=== PATIENT | male | born 1940 | race Caucasian/White ===

== ENCOUNTER 2019-02-13 07:30 | Inpatient (IN) ==
[2019-02-06 17:50] LABS: Appearance,Urine CLEAR; Bacteria,Urine 0 /hpf (0); Bilirubin,Urine NEG (NEG); Color,Urine YELLOW; Glucose,Urine (UA) 50 mg/dL (NEG); Ketones,Urine NEG (NEG); Leukocyte Esterase,Urine NEG /uL (NEG); Mucus,Urine FEW /hpf (0); Nitrate,Urine NEG (NEG); Protein,Urine >=500 mg/dL (NEG); Specific Gravity,Urine 1.018 (1.000-1.035); Urine Blood NEG mg/dL (<0.03); Urine RBC 0 /hpf (0-1); Urine Squamous Epithelial Cell 2 /hpf (0-4); Urine WBC 1 /hpf (0-4); Urobilinogen,Urine NEG (NEG)
[2019-02-06 18:30] LABS: Basophils # (Auto) 0.1 K/mcL (0.0-0.3); Basophils % (Auto) 0.6 % (0.0-2.0); Eosinophils # (Auto) 0.6 K/mcL (0.0-0.7); Eosinophils % (Auto) 6.5 % (0.0-7.0); Granulocytes % (Auto) 56.1 % (38.0-78.0); Hematocrit 39.6 % (41.0-55.0); Hemoglobin 12.7 g/dL (13.5-16.5); Lymphocytes # (Auto) 2.6 K/mcL (1.5-4.8); Lymphocytes % (Auto) 29.3 % (15.5-49.0); Mean Cell Volume 79.1 fL (80.0-100.0); Mean Platelet Volume 8.2 fL (7.4-10.4); Monocytes # (Auto) 0.7 K/mcL (0.1-0.9); Monocytes % (Auto) 7.5 % (1.0-12.0); Platelet Count 263 K/mcL (140-440); RBC 5.01 M/mcL (4.50-5.90); WBC 8.8 K/mcL (4.5-11.0)
[2019-02-06 18:39] LABS: Blood Urea Nitrogen 23 mg/dl (8-23); Calcium 9.7 mg/dl (8.6-10.4); Carbon Dioxide 25 mmol/L (22-30); Chloride 100 mmol/L (96-108); Glomerular Filtration Rate 82; Glucose 200 mg/dL (70-105)
[2019-02-06 18:53] LABS: Estimated Average Glucose(eAG) 197 mg/dL; Hemoglobin A1C 8.5 % HGB (4.0-6.0)
[~2019-02-13 07:30] MED LIST: 0.9 % SODIUM CHLORIDE 9 ML, KETOROLAC 30 MG, ROPIVACAINE HCL/PF 49.5 ML, EPINEPHrine 0.... IJ SCH; ACETAMINOPHEN 500 MG TABLET PO SCH; PREGABALIN 75 MG CAPSULE PO SCH; ceFAZolin 3 GM in DEXTROSE 5% IN WATER 50 ML IV SCH; oxyCODONE 10 MG TAB.ER.12H PO SCH
[2019-02-13] MEDS ORDERED: SCOPOLAMINE 1 PATCH PATCH TOPICAL PRN (08:00)
[2019-02-13] MEDS ORDERED: IPRATROPIUM/ALBUTEROL 3 ML AMPUL.NEB NEB PRN ×2 (08:00→13:32)
[2019-02-13] MEDS: CELECOXIB 200 MG CAPSULE PO SCH (10:45)
[2019-02-13] MEDS ORDERED: GENTAMICIN SULFATE 800 MG/20 ML VIAL IR ONE (10:51)
[2019-02-13] MEDS ORDERED: GLYCOPYRROLATE 0.2 MG/ML VIAL IV ONE (11:55)
[2019-02-13] MEDS ORDERED: ONDANSETRON 4 MG/2 ML VIAL IV ONE (11:55)
[2019-02-13] MEDS ORDERED: DEXAMETHASONE 10 MG/ML VIAL IV ONE (11:55)
[2019-02-13] MEDS ORDERED: KETAMINE 100 MG/ML ML IV ONE (11:55)
[2019-02-13] MEDS ORDERED: fentaNYL 100 MCG/2 ML VIAL IV ONE (11:55)
[2019-02-13] MEDS ORDERED: PROPOFOL 200 MG/20 ML VIAL IV ONE (11:55)
[2019-02-13] MEDS ORDERED: MIDAZOLAM 2 MG/2 ML VIAL IV ONE (11:55)
[2019-02-13] MEDS ORDERED: TRANEXAMIC ACID 1,000 MG/10 ML VIAL IV ONE ×3 (11:55→14:14)
[2019-02-13] MEDS ORDERED: ROPIVACAINE HCL/PF 30 ML VIAL IJ ONE (11:55)
[2019-02-13] MEDS ORDERED: LIDOCAINE HCL/PF 100 MG/5 ML SYRINGE IV ONE (11:55)
[2019-02-13] MEDS ORDERED: METHOCARBAMOL 1,000 MG/10 ML VIAL IV PRN (13:32)
[2019-02-13] MEDS ORDERED: ONDANSETRON 4 MG/2 ML VIAL IV PRN ×2 (13:32→13:52)
[2019-02-13] MEDS ORDERED: MEPERIDINE 25 MG/ML SYRINGE IV PRN (13:32)
[2019-02-13] MEDS ORDERED: LACTATED RINGERS 1,000 ML IV SCH (13:45)
[2019-02-13] MEDS ORDERED: BISACODYL 10 MG SUPP.RECT PR PRN (13:52)
[2019-02-13] MEDS ORDERED: POLYETHYLENE GLYCOL 3350 17 GM PACKET PO PRN (13:52)
[2019-02-13] MEDS ORDERED: MAGNESIUM HYDROXIDE 30 ML ORAL.SUSP PO PRN (13:52)
[2019-02-13] MEDS ORDERED: BENZOCAINE/MENTHOL 1 LOZENGE PO PRN (13:52)
[2019-02-13] MEDS ORDERED: FLEETS ADULT ENEMA PR PRN (13:52)
--- NOTE | 2019-02-13 14:11 | XRay Report ---
CLINICAL INFORMATION: post op COMPARISON: None. FINDINGS: Total knee prostheses is anatomically aligned. No osseous abnormality. Periarticular gas soft tissues and seen at the expected IMPRESSION: Negative Interpreted and Authenticated by: Vignesh Hightower 02/13/19
[2019-02-13] MEDS ORDERED: TRANEXAMIC ACID 1,000 MG/10 ML VIAL IV SCH (14:30)
[2019-02-13] MEDS: 0.9 % SODIUM CHLORIDE 10 ML SYRINGE IV SCH ×2 (15:43→21:36)
[2019-02-13] MEDS: 0.45 % SODIUM CHLORIDE 1,000 ML IV SCH (17:24)
[2019-02-13] MEDS: metFORMIN 500 MG TABLET PO SCH (17:24)
--- NOTE | 2019-02-13 18:47 | Brief Operative Note ---
Date of procedure: 02/13/19 Pre-op diagnosis: Right knee djd Post-op diagnosis: same Procedure: Right knee tka Grafts/Implants: Yes Anesthesia: DUSTIN Surgeon: eJrry Fowler Combined Rail Operator: Harshil Bar Estimated blood loss (cc): 50 Tourniquet Time (Minutes): 45 Specimens Removed/Pathology: none sent Condition: stable Disposition: PACU
[2019-02-13] MEDS: ceFAZolin 1 GM VIAL IV SCH (18:49)
[2019-02-13] MEDS ORDERED: SENNOSIDES 1 TABLET PO SCH (21:00)
[2019-02-13] MEDS ORDERED: amLODIPine 5 MG TABLET PO SCH (21:00)
[2019-02-13] MEDS ORDERED: INSULIN GLARGINE, HUMAN 1 UNIT/0.01 ML SQ SCH (21:00)
[2019-02-13] MEDS ORDERED: SIMVASTATIN 20 MG TABLET PO SCH (21:00)
[2019-02-13] MEDS: DOCUSATE SODIUM 100 MG CAPSULE PO SCH (21:33)
[2019-02-13] MEDS: ALLOPURINOL 300 MG TABLET PO SCH (21:34)
[2019-02-13] MEDS: HYDROcodone/APAP 10/325MG TABLET PO PRN (21:35)
[2019-02-14] MEDS: ceFAZolin 1 GM VIAL IV SCH (04:19)
[2019-02-14] MEDS: 0.9 % SODIUM CHLORIDE 10 ML SYRINGE IV SCH (04:19)
[2019-02-14] MEDS: HYDROcodone/APAP 10/325MG TABLET PO PRN ×2 (06:19→09:55)
[2019-02-14 06:59] LABS: Hematocrit 35.4 % (41.0-55.0); Hemoglobin 11.4 g/dL (13.5-16.5)
--- NOTE | 2019-02-14 07:24 | Orthopedic Progress Note ---
Subjective Patient information: Note initiated : 02/14/19 at 7:23 am Service Date, if different from initiated Date: [] Patient: Gisele Steiner 78 y/o M admitted on 02/13/19 for Right Total Knee Arthroplasty. Chief Complaint: [Pt is stable this morning on post operative day 1 without any significant concerns or complaints. Patients vital signs have remained stable. Patients dressing is dry and is grossly intact from a neurovascular and motor standpoint. Patients 10 point ROS is otherwise negative. ] Objective Vital signs: Vital Signs Temp Pulse Resp BP Pulse Ox 02/14/19 03:02 97.3 F 102 H 16 116/79 94 02/13/19 23:19 97.3 F 95 H 16 120/78 93 02/13/19 19:15 98.0 F 99 H 16 137/92 94 02/13/19 14:20 97.1 F 104 H 15 118/80 94 02/13/19 14:05 97.3 F 105 H 17 97/69 90 02/13/19 13:55 97.6 F 91 H 11 L 124/68 95 02/13/19 13:50 88 10 L 97/70 92 02/13/19 13:45 95 H 9 L 98/64 92 02/13/19 13:40 95 H 9 L 97/58 92 02/13/19 13:35 97.1 F 92 H 10 L 110/63 95 02/13/19 08:15 97.6 F 100 H 18 130/90 95 Intake and Output 02/13/19 02/14/19 02/14/19 21:59 05:59 13:59 Intake Total 940 375 Output Total 225 Balance 940 375 -225 Intake: Oral 840 375 IV - Manual Only 100 Output: Void Amount 225 Other: Meal Dinner Percent of Meal Consumed 100% Feeding Ability Independent Urine Appearance Clear Urine Color Bright Yellow Urine Odor Normal Weight 288 lb 8 oz Intake & Output: Intake & Output 02/13/19 02/14/19 02/14/19 21:59 05:59 13:59 Intake Total 940 375 Output Total 225 Balance 940 375 -225 Weight 288 lb 8 oz Intake: Oral 840 375 IV - Manual Only 100 Output: Void Amount 225 Other: Meal Dinner Percent of Meal Consumed 100% Feeding Ability Independent Urine Appearance Clear Urine Color Bright Yellow Urine Odor Normal Incision: Yes healing Incision clean and dry: Yes Dressing: Yes clean Weight bearing status: full Neurological exam IM: Yes motor sensory intact, Yes neurovascular intact Extremities exam IM: Yes Foot pink and warm, Yes neurovascular intact - Labs CBC & BMP: 02/14/19 05:05 02/06/19 16:55 Labs: Orthopedic Labs 02/14/19 05:05 PT Pending INR Pending 02/14/19 02/06/19 05:05 16:55 Hgb 11.4 L 12.7 L Hct 35.4 L 39.6 L Assessment and Plan (1) Hx of total knee arthroplasty The patient has been educated regarding dressing care, Physical Therapy recommendations, home exercises, restrictions, and follow up appointments. The patient has had all necessary DME prescribed. The patient has remained relatively stable during their hospital course. Leave Dermabond patch intact until followup Status: Acute
--- NOTE | 2019-02-14 07:26 | Discharge Summary ---
Ortho Discharge - TKA - Patient Instructions Diet: Regular Diet Activity: activity as tolerated, weight bearing as tolerated Total Knee Protocol: For Total Knee: Start ROM NUPUR with stationary bike or rocking chair. Work on gaining full extension of knee. Posterior dislocation precautions provided. Hip abductor strengthening and gait training instructions provided. Apply Cryocuff as instructed. Dressing Care: May shower in 2 days - Problem Maintenance (1) Hx of total knee arthroplasty Status: Acute - Follow Up Plan Follow Up Appointments: Harshil Bar PA-C [Physician Charging Board Operator] - 03/02/19 10:00 am Disposition: Home, Self-Care Prognosis: Good Rehab Potential: Good I certify that the patient requires SNF services: No Overall status at discharge: patient is progressing back to baseline - Orders For Discharge Prescriptions: Docusate Sodium [Colace] 100 mg PO BID #60 capsule HYDROcodone/APAP 10/325MG [[place] 10-325Mg] 1 - 2 tab PO Q4HP PRN #75 tablet PRN Reason: Pain Level 3-6
--- NOTE | 2019-02-14 08:11 | Operative Note ---
DATE OF OPERATION: 02/13/2019 PREOPERATIVE DIAGNOSIS: Right knee degenerative arthritis, severe. POSTOPERATIVE DIAGNOSIS: Right knee degenerative arthritis, severe. INDICATIONS: The patient has failed all conservative measures, which included anti-inflammatories, Tylenol and prior injections. The patient rates pain at 8/10 and able to ambulate less than half mile without stopping and awakens at night with pain. The patient also has x-rays showing [id number] arthritis. PROCEDURE: Right total knee arthroplasty using ODC components. SURGEON: Jerry Fowler MD [place] SUPERVISOR: Harshil Bar PA-C. This provider's expertise and technical skill were required throughout the case. The PA assisted with preoperative coordination, intraoperative retraction, wound closure, dressing and splint application, as well as postoperative documentation and care coordination. ANESTHESIA: General LMA anesthesia. COMPLICATIONS: None. DESCRIPTION OF PROCEDURE: The patient was brought to the operating room and put to sleep with general LMA anesthesia. Once asleep, the patient had the right knee sterilely prepped and draped in the usual sterile fashion. The leg was exsanguinated and inflated to 250 pounds of pressure and a midline incision was made. Ioban was placed over the skin. Preop antibiotics and tranexamic acid had been given and we exposed the joint with a mid vastus approach showing severe arthritis. The spurs were removed. We placed the guide intramedullary and made our distal femoral cut with 5 degrees of valgus and 3 degrees of external rotation. With this calculated, we then made our anterior and posterior and chamfer cuts. The bony fragments were removed with spurs. We then placed an intramedullary guide in the tibia and made our tibial cut at 8 mm below the least involved area and removed the remnants of the meniscus. These bony fragments were removed. We tapped into place the tibial baseplate and the femur; femur size 6, size 5 tibial baseplate. We then tensioned the ligaments accordingly and to gain full range of motion and stability throughout the arc of motion. We irrigated thoroughly and then prepared the patella. Patella measured 25 mm in total thickness. This was cut to 15 mm and we then placed patellar button into place to cover the bony surface. This seemed to fit very nicely. We irrigated thoroughly and then cemented into place the components. Excess cement was removed. We then placed the knee at 45 degrees and closed the midvastus approach with #1 Stratafix x2 sutures. We closed the skin with 2-0 Vicryl and adhesive closure. Sterile bandage applied. Tourniquet deflated at approximately 45 minutes. RBH:ariel Job ID: [id number] Doc ID: [id number] Jerry Fowler MD
[2019-02-14 08:29] LABS: INR 1.1 (0.9-1.1); Prothrombin Time 14.2 sec (11.9-14.5)
[2019-02-14] MEDS ORDERED: LOSARTAN 50 MG TABLET PO SCH (09:00)
[2019-02-14] MEDS ORDERED: ASPIRIN 325 MG ENTERIC COATED TABLET PO SCH (09:00)
[2019-02-14] MEDS: 0.45 % SODIUM CHLORIDE 1,000 ML IV SCH (09:13)
[2019-02-14] MEDS: DOCUSATE SODIUM 100 MG CAPSULE PO SCH (10:00)
[2019-02-14] MEDS ORDERED: PNEUMOCOCCAL 23-VAL P-SAC VAC 0.5 ML SYRINGE IM ONE (10:00)
[2019-02-14] MEDS ORDERED: FLU VACC QS2019-20(6MOS UP)/PF 60 MCG/0.5 ML SYRINGE IM ONE (10:00)
[2019-02-14] MEDS: metFORMIN 500 MG TABLET PO SCH (10:01)
[2019-02-14] MEDS: ALLOPURINOL 300 MG TABLET PO SCH (10:02)
== END 2019-02-14 13:30 | disposition home or self-care (01) | DRG 470 ==
LOC: MEDSUR 08:15
PROVIDERS: ADMIT Orthopaedic Surgery; ATTEND Orthopaedic Surgery

== ENCOUNTER 2021-11-22 17:56 | Inpatient (IN) ==
[2021-11-22] MEDS ORDERED: IOPAMIDOL 100 ML BOTTLE IV ONE (17:57)
[2021-11-22] MEDS ORDERED: 0.9 % SODIUM CHLORIDE 1,000 ML IV ONE (18:01)
[2021-11-22] MEDS ORDERED: 0.9 % SODIUM CHLORIDE 2,330 ML IV ONE (18:10)
--- NOTE | 2021-11-22 18:16 | Emergency Department Note ---
Neuro HPI General Chief Complaint: Stroke Symptoms Stated Complaint: altered mental status Time Seen by Provider: 11/22/21 18:01 Source: family Mode of arrival: wheelchair Limitations: altered mental status History of Present Illness HPI Narrative: Narrative: Daughter presents ED with patient with complaints of altered mental status since 3:00 this afternoon. Daughter states that patient has been having trouble expressing himself and she is noted some slurred speech. She stated that he has become extremely weak and unable to walk. At baseline he speaks clearly and is able to ambulate without difficulty. She states this is happened before and he was dehydrated. She states his symptoms were not getting better so he came here. Patient himself states that he just does not feel like himself. Patient states that he has felt feverish and he had diarrhea yesterday. He denies head trauma, falls, nausea, vomiting, shortness of breath, cough, sputum production, hemoptysis, cardiac chest pain, heart palpitations, melena, medic easier, dysuria, hematuria, urinary frequency, known sick contacts. Denies any history of previous strokes or heart attacks. Patient denies any other alleviating or aggravating factors. On Anticoagulants: No Related Data Home Medications Medication Instructions Recorded Confirmed allopurinol 300 mg tablet 300 mg PO DAILY 02/06/19 11/22/21 amlodipine 5 mg tablet 5 mg PO BID 02/06/19 11/22/21 insulin glargine 100 unit/mL 15 unit SQ HS 02/06/19 11/22/21 subcutaneous solution metformin 500 mg tablet 1,000 mg PO BIDCC 02/06/19 11/22/21 pravastatin 40 mg tablet 40 mg PO HS 02/06/19 11/22/21 losartan 100 1 tab PO QDAY 11/22/21 11/22/21 mg-hydrochlorothiazide 25 mg tablet metoprolol succinate 25 mg 25 mg PO .COMPLEX INSTRUCTION 11/22/21 11/22/21 tablet,extended release 24 hr nateglinide 60 mg tablet 1 tab PO TIDAC 11/22/21 11/22/21 spironolactone 25 mg tablet 1 tab PO QAM 11/22/21 11/22/21 Allergies Allergy/AdvReac Type Severity Reaction Status Date / Time No Known Drug Allergies Allergy Verified 11/22/21 18:02 Review of Systems ROS ROS Narrative: Narrative: All systems ED: reviewed and negative except as stated. [facility] Narrative Patient History Narrative: Narrative: Medical/Surgical/Family History All Active Problems (Updated 11/22/21 @ 21:08 by Sp Guevara DO) Hx of total knee arthroplasty (Acute) Dehydration (Acute) Generalized weakness (Acute) Nausea & vomiting (Acute) Atypical chest pain (Acute) Elevated brain natriuretic peptide (BNP) level (Acute) Sepsis (Acute) Acute alteration in mental status (Acute) Cellulitis of foot, left (Acute) Acute dehydration (Acute) Social History Smoking Status: Never smoker Exam Narrative Narrative: Narrative: General Limitations: altered mental status General appearance: Present alert Eye Eye: Present PERRL and EOMI ENT ENT: Present normal oropharynx and mucous membranes dry Neck Neck: Present normal inspection; Absent meningismus Respiratory Respiratory: Present normal lung sounds bilaterally; Absent respiratory distress Cardiovascular Cardiovascular: Present regular rate and normal rhythm Adbominal Abdominal: Present soft; Absent tenderness Extremities Extremities: Present normal inspection and normal capillary refill; Absent tenderness Expanded Lower Extremity Top foot image: 1. Area of erythema, warmth and mild tenderness to palpation Neurological Neurological: Present alert, CN II-XII intact and other (NIHSS=2) Expanded Neurological Patient oriented to: Present person and place; Absent time Speech: Present expressive aphasia and slurred Motor strength - LUE: 5/5 Motor strength - RUE: 5/5 Motor strength - LLE: 5/5 Motor strength - RLE: 5/5 Coma Scale Eye Opening: Spontaneous Coma Scale Motor Response: Obeys Commands Coma Scale Verbal Response: Confused Coma Scale Total: 14 Psychiatric Psychiatric: Present polite and pleasant Skin Skin: Present warm (WNL) and intact Course Course Course Narrative: Patient was evaluated for altered mental status. CT of the head was obtained and was negative. And telestroke was consulted and evaluated patient and requested CTA of head and neck which was obtained and was negative. Telemetry neurologist exam patient not have instructed that he may have some type of metabolic encephalopathy. Labs show that patient had leukocytosis, elevated procalcitonin and elevated lactic acid at 2.3. He did meet sepsis criteria with the additional findings of fever. Full body exam showed that patient had some redness and erythema on his left foot consistent with cellulitis. X-ray of the left foot obtained with image reviewed myself with no acute bony abnormality to suggest osteomyelitis. Blood cultures were obtained and patient was given IV fluids, IV antibiotics. After receiving fluids patient's mentation greatly improved. Recommend the patient be admitted to the hospitalist service for sepsis secondary to cellulitis. Case discussed with hospitalist who has agreed to admit the patient Reevaluation(s) Reevaluation #1: Code stroke activated Time: 18:05 Reevaluation #2: Patient jorge hemodynamic stable. No new complaints at this time. Much more lucid after IV fluids Time: 19:50 Consultations Consultation #1: Case discussed with telemetry neurologist, Dr. Alvarado, he recommends obtaining a CT of the head and neck with a CT head without contrast is clean. He will evaluate patient remotely once patient is back from CT. Time: 18:15 Consultation #2: Dr. Levy evaluate the patient and feels that he is not acutely having a stroke. CT of the head was negative. He recommends medical treatment of assess patient's altered mental status as it may be metabolic in nature. Time: 19:00 Consultation #3: Case discussed with hospitalist, Dr. Munroe who has agreed to evaluate the patient Time: 21:44 Vital Signs Vital signs: Vital Signs Temperature 100.7 F H 11/22/21 17:59 Pulse Rate 90 11/22/21 17:59 Respiratory Rate 20 11/22/21 17:59 Blood Pressure 105/63 11/22/21 17:59 Pulse Oximetry (%) 95 11/22/21 17:59 Oxygen Delivery Method 11/22/21 17:59 Temperature 98.7 F 11/22/21 21:31 Pulse Rate 82 11/22/21 22:16 Respiratory Rate 23 H 11/22/21 22:16 Blood Pressure 125/72 11/22/21 22:16 Pulse Oximetry (%) 95 11/22/21 22:16 Oxygen Delivery Method 11/22/21 17:59 MDM MDM Narrative Medical decision making narrative: Narrative: Differential Diagnosis Differential Diagnosis: Stroke, viral illness, sepsis, dehydration Medical Records Medical records reviewed: Yes I reviewed the patient's medical records. Lab Data Lab results reviewed: Yes I reviewed the patient's lab results. Result diagrams: 11/22/21 19:13 Labs: Lab Results 11/22/21 11/22/21 11/22/21 Range/Units 18:30 18:31 19:13 WBC 18.0 H (4.5-11.0) K/mcL RBC 4.56 L (4.63-6.08) M/mcL Hgb 13.4 L (13.7-17.5) g/dL Hct 40.3 (40.1-51.0) % POC Hct 42.0 (41-55) MCV 88.4 (80.0-100.0) fL MCH 29.4 (26.0-34.0) pg MCHC 33.3 (31.0-36.0) g/dL RDW 14.1 (11.5-14.5) % Plt Count 222 (140-440) K/mcL MPV 10.1 (7.4-10.4) fL Immature Gran % (Auto) 0.5 (0.0-0.5) % Neut % (Auto) 89.5 H (38.0-78.0) % Lymph % (Auto) 4.1 L (15.5-49.0) % [place] % (Auto) 5.0 (1.0-12.0) % Eos % (Auto) 0.5 (0.0-7.0) % Baso % (Auto) 0.4 (0.0-2.0) % Lymph # (Auto) 0.74 L (1.50-4.80) K/mcL [place] # (Auto) 0.90 (0.10-0.90) K/mcL Eos # (Auto) 0.09 (0.00-0.70) K/mcL Baso # (Auto) 0.07 (0.00-0.30) K/mcL Immature Gran # 0.09 H (0.00-0.05) K/mcl Absolute Neutrophils 16.08 H (1.80-8.00) K/mcL POC VBG pH 7.42 (7.32-7.42) POC VBG pCO2 at Temp 30.0 L (41-51) POC VBG pO2 46 H (25-40) POC VBG HCO3 19.3 L (24-28) POC VBG Total CO2 20.0 L (25-29) POC Venous O2 Sat 83.0 H (40-70) POC VBG Base Excess -5.0 L (-2-2) VBG Lactic Acid 2.3 H (0.5-2) POC Sodium 135 (133-145) POC Potassium 4.5 (3.3-5.1) POC Chloride 105 (96-108) POC Total CO2 21.0 L (22-30) POC BUN 29 H (6-20) POC Creatinine 1.2 (0.6-1.2) POC Glucose 172 H (70-105) POC WB Ioniz Calcium 1.18 (1.16-1.32) Total Bilirubin (0.1-1.0) mg/dL Direct Bilirubin (<0.3) mg/dL AST (<40) U/L ALT (<40) U/L Alkaline Phosphatase (39-117) U/L Ammonia (16-60) umol/L Total Protein (5.9-8.4) gm/dL Albumin (3.2-5.2) gm/dL Globulin (2.2-3.7) gm/dL Procalcitonin (<0.10) ng/mL Ethyl Alcohol mg/dL mg/dL Ethyl Alcohol g/dL (<0.010) gm/dL 11/22/21 11/22/21 11/22/21 Range/Units 19:13 19:13 19:13 WBC (4.5-11.0) K/mcL RBC (4.63-6.08) M/mcL Hgb (13.7-17.5) g/dL Hct (40.1-51.0) % POC Hct (41-55) MCV (80.0-100.0) fL MCH (26.0-34.0) pg MCHC (31.0-36.0) g/dL RDW (11.5-14.5) % Plt Count (140-440) K/mcL MPV (7.4-10.4) fL Immature Gran % (Auto) (0.0-0.5) % Neut % (Auto) (38.0-78.0) % Lymph % (Auto) (15.5-49.0) % [place] % (Auto) (1.0-12.0) % Eos % (Auto) (0.0-7.0) % Baso % (Auto) (0.0-2.0) % Lymph # (Auto) (1.50-4.80) K/mcL [place] # (Auto) (0.10-0.90) K/mcL Eos # (Auto) (0.00-0.70) K/mcL Baso # (Auto) (0.00-0.30) K/mcL Immature Gran # (0.00-0.05) K/mcl Absolute Neutrophils (1.80-8.00) K/mcL POC VBG pH (7.32-7.42) POC VBG pCO2 at Temp (41-51) POC VBG pO2 (25-40) POC VBG HCO3 (24-28) POC VBG Total CO2 (25-29) POC Venous O2 Sat (40-70) POC VBG Base Excess (-2-2) VBG Lactic Acid (0.5-2) POC Sodium (133-145) POC Potassium (3.3-5.1) POC Chloride (96-108) POC Total CO2 (22-30) POC BUN (6-20) POC Creatinine (0.6-1.2) POC Glucose (70-105) POC WB Ioniz Calcium (1.16-1.32) Total Bilirubin 1.2 H (0.1-1.0) mg/dL Direct Bilirubin 0.3 H (<0.3) mg/dL AST 14 (<40) U/L ALT 7 (<40) U/L Alkaline Phosphatase 103 (39-117) U/L Ammonia 35 (16-60) umol/L Total Protein 6.7 (5.9-8.4) gm/dL Albumin 3.7 (3.2-5.2) gm/dL Globulin 3.0 (2.2-3.7) gm/dL Procalcitonin (<0.10) ng/mL Ethyl Alcohol mg/dL < 10.0 mg/dL Ethyl Alcohol g/dL < 0.010 (<0.010) gm/dL 11/22/21 Range/Units 19:13 WBC (4.5-11.0) K/mcL RBC (4.63-6.08) M/mcL Hgb (13.7-17.5) g/dL Hct (40.1-51.0) % POC Hct (41-55) MCV (80.0-100.0) fL MCH (26.0-34.0) pg MCHC (31.0-36.0) g/dL RDW (11.5-14.5) % Plt Count (140-440) K/mcL MPV (7.4-10.4) fL Immature Gran % (Auto) (0.0-0.5) % Neut % (Auto) (38.0-78.0) % Lymph % (Auto) (15.5-49.0) % [place] % (Auto) (1.0-12.0) % Eos % (Auto) (0.0-7.0) % Baso % (Auto) (0.0-2.0) % Lymph # (Auto) (1.50-4.80) K/mcL [place] # (Auto) (0.10-0.90) K/mcL Eos # (Auto) (0.00-0.70) K/mcL Baso # (Auto) (0.00-0.30) K/mcL Immature Gran # (0.00-0.05) K/mcl Absolute Neutrophils (1.80-8.00) K/mcL POC VBG pH (7.32-7.42) POC VBG pCO2 at Temp (41-51) POC VBG pO2 (25-40) POC VBG HCO3 (24-28) POC VBG Total CO2 (25-29) POC Venous O2 Sat (40-70) POC VBG Base Excess (-2-2) VBG Lactic Acid (0.5-2) POC Sodium (133-145) POC Potassium (3.3-5.1) POC Chloride (96-108) POC Total CO2 (22-30) POC BUN (6-20) POC Creatinine (0.6-1.2) POC Glucose (70-105) POC WB Ioniz Calcium (1.16-1.32) Total Bilirubin (0.1-1.0) mg/dL Direct Bilirubin (<0.3) mg/dL AST (<40) U/L ALT (<40) U/L Alkaline Phosphatase (39-117) U/L Ammonia (16-60) umol/L Total Protein (5.9-8.4) gm/dL Albumin (3.2-5.2) gm/dL Globulin (2.2-3.7) gm/dL Procalcitonin 0.22 H (<0.10) ng/mL Ethyl Alcohol mg/dL mg/dL Ethyl Alcohol g/dL (<0.010) gm/dL ED POC Tests ED POC Tests: RAHEEM - Influenza A Negative RAHEEM - Influenza B Negative RAHEEM - SARS Antigen Negative Radiology Data Radiology results reviewed: Yes I reviewed the patient's radiology results. Radiology results narrative: CT of the head obtained with image reviewed myself, no acute intracranial findings CTA head and neck obtained with image reviewed myself, no acute intracranial findings. EKG Data EKG #1: EKG attestation: Yes I reviewed and interpreted this EKG. EKG shows normal: sinus rhythm Rate: normal (92) Rhythm: A.Fib [place]/QRS: normal Heart block present: None ST segment elevation in: None ST segment depression in: None QTc: normal QRS morphology: Present normal Interpretation: no acute changes EKG #2: EKG attestation: Yes I reviewed and interpreted this EKG. EKG shows normal: sinus rhythm Rate: normal Rhythm: A.Fib [place]/QRS: normal Heart block present: None ST segment elevation in: None ST segment depression in: None QTc: normal QRS morphology: Present normal Interpretation: no acute changes Core Measures AMI Core Measures Followed: Yes Discharge Plan Patient/Caregiver Discharge Instructions Pt seen by [employer] CHIEF CREATIVE OFFICER/PA only: No Clinical Impression: Sepsis, Acute alteration in mental status, Cellulitis of foot, left, Acute dehydration Patient Disposition: Xfer As Inpt ([facility]) Condition: Fair Follow up with: Abran Owens DO [Primary Care Provider] - Prescriptions: No Action metformin 500 MG tablet 1,000 mg PO BIDCC insulin glargine 1 UNIT/0.01 ML unit 15 unit SQ HS pravastatin 40 MG tablet 40 mg PO HS amlodipine 5 MG tablet 5 mg PO BID allopurinol 300 MG tablet 300 mg PO DAILY losartan-hydrochlorothiazide 100-25 mg tablet 1 tab PO QDAY spironolactone 25 mg tablet 1 tab PO QAM nateglinide 60 mg tablet 1 tab PO TIDAC metoprolol succinate 25 mg tablet extended release 24 hr 25 mg PO .COMPLEX INSTRUCTION Rx Instructions: 25 mg in am and 50 mg in the evening.
[2021-11-22 18:32] LABS: POC Calcium, Ionized 1.18 (1.16-1.32); POC Creatinine 1.2 (0.6-1.2); POC Potassium 4.5 (3.3-5.1)
[2021-11-22] MEDS ORDERED: PIPERACILLIN SODIUM/TAZOBACTAM 3.375 GM in DEXTROSE 5% IN WATER 50 ML IV ONE (19:16)
[2021-11-22] MEDS ORDERED: VANCOMYCIN 1,000 MG in 0.9 % SODIUM CHLORIDE 250 ML IV ONE (19:16)
[2021-11-22 20:02] LABS: Basophils # (Auto) 0.07 K/mcL (0.00-0.30); Basophils % (Auto) 0.4 % (0.0-2.0); Eosinophils # (Auto) 0.09 K/mcL (0.00-0.70); Eosinophils % (Auto) 0.5 % (0.0-7.0); Hematocrit 40.3 % (40.1-51.0); Hemoglobin 13.4 g/dL (13.7-17.5); Lymphocytes # (Auto) 0.74 K/mcL (1.50-4.80); Lymphocytes % (Auto) 4.1 % (15.5-49.0); Mean Cell Volume 88.4 fL (80.0-100.0); Mean Corpuscular HGB Conc 33.3 g/dL (31.0-36.0); Mean Platelet Volume 10.1 fL (7.4-10.4); Neutrophils % (Auto) 89.5 % (38.0-78.0); Platelet Count 222 K/mcL (140-440); RBC 4.56 M/mcL (4.63-6.08); Red Cell Distribution Width 14.1 % (11.5-14.5)
[2021-11-22 20:14] LABS: Alcohol, Blood < 10.0 mg/dL; Alcohol,Blood < 0.010 gm/dL (<0.010)
[2021-11-22 21:24] LABS: ALT/SGPT 7 U/L (<40); AST/SGOT 14 U/L (<40); Albumin 3.7 gm/dL (3.2-5.2); Alkaline Phosphatase 103 U/L (39-117); Bilirubin,Direct 0.3 mg/dL (<0.3); Bilirubin,Total 1.2 mg/dL (0.1-1.0)
--- NOTE | 2021-11-22 22:13 | Internal Med History&Physical ---
HPI History of Present Illness Patient information: Note initiated : 11/22/21 at 10:04 pm Service Date, if different from initiated Date: [] Patient: Gisele Steiner a 81 y/o M admitted on for altered mental status. Chief Complaint: [] History of present illness: Mr. Steiner is a 81 year old M Presents today with family members for weakness confusion nausea vomiting. Most of the history is obtained from the daughter as patient still has some co nfusion and is a poor historian. Sounds like he was feeling well this morning when he woke up. Around 3:00 he became progressively weak. He says he had the "trembles". He had progressive confusion and had nausea and vomiting and then felt he had an upset stomach. Does frequently have pyrosis. Also complained of fevers and chills. No diarrhea. No chest pain coughing or respiratory complaints. Denies any dysuria but feels his urine is strong smelling. In the ED he had a stroke work-up including CTA head and neck which were unremarkable. Laboratory was significant for a fever of 100.7. Had some low systolic blood pressures in the low 90s. Procalcitonin mildly elevated lactate mildly elevated 2.3. BUN 29 creatinine 1.2. And a leukocytosis of 18,000. Evaluating for source of infection in the ED, he was found to have some erythema over the left foot as well as swelling. Discussion with the daughter she says that is unusual for him. The redness and swelling over the dorsum of the foot. He also has more swelling in that leg compared to the right. Patient is also found to have a atrial fibrillation. Per the family they think has had it for a years but I do not find any record in PCP notes. Cannot find any echocardiograms but I do find an EKG from 2019 that shows atrial fibrillation. EKG also in A. fib in October during ED visit. Review of Systems: Pertinent positives as above. Denies headache/chest or abdominal pain/cough/dyspnea/diarrhea. Main 10 point review of system reviewed negative PFSH PFSH All Active Problems (Updated 11/22/21 @ 21:08 by Sp Guevara DO) Hx of total knee arthroplasty (Acute) Dehydration (Acute) Generalized weakness (Acute) Nausea & vomiting (Acute) Atypical chest pain (Acute) Elevated brain natriuretic peptide (BNP) level (Acute) Sepsis (Acute) Acute alteration in mental status (Acute) Cellulitis of foot, left (Acute) Acute dehydration (Acute) Social History smoking status: Never smoker MEDS/ALLERGIES Home Medications and Allergies Home Medications Medication Instructions Recorded Confirmed Type allopurinol 300 mg tablet 300 mg PO DAILY 02/06/19 11/22/21 History amlodipine 5 mg tablet 5 mg PO BID 02/06/19 11/22/21 History insulin glargine 100 unit/mL 15 unit SQ HS 02/06/19 11/22/21 History subcutaneous solution metformin 500 mg tablet 1,000 mg PO BIDCC 02/06/19 11/22/21 History pravastatin 40 mg tablet 40 mg PO HS 02/06/19 11/22/21 History losartan 100 1 tab PO QDAY 11/22/21 11/22/21 History mg-hydrochlorothiazide 25 mg tablet metoprolol succinate 25 mg 25 mg PO .COMPLEX INSTRUCTION 11/22/21 11/22/21 History tablet,extended release 24 hr nateglinide 60 mg tablet 1 tab PO TIDAC 11/22/21 11/22/21 History spironolactone 25 mg tablet 1 tab PO QAM 11/22/21 11/22/21 History Allergies Allergy/AdvReac Type Severity Reaction Status Date / Time No Known Drug Allergies Allergy Verified 11/22/21 18:02 EXAM Constitutional Vitals: Temp Pulse Resp BP Pulse Ox O2 Del Method 98.7 F 72 22 108/61 94 11/22/21 21:31 11/22/21 21:31 11/22/21 21:31 11/22/21 21:31 11/22/21 21:31 11/22/21 17:59 Exam: General: Alert, Awake, No acute Distress, obese Eyes/N/T: EOMI, PERRL, dry MM Head/Neck: neck supple, normocephalic atraumatic CV: RRR, No murmurs, normal s1/s2 Pulm: Clear b/l, no wheezing/rhonchi/rales Abd: soft, nontender, +BS x4 Ext: no clubbing/cyanosis. b/l LE edema 2+ L>R, mild erythema and increased edema dorsum of left foot but nontender Neuro: Alert, no focal deficits, moves all extremities, CN 2-12 grossly intact, symmetrical strength b/l upper/lower, sensations intact b/l upper/lower Skin: warm/dry DATA Data Completed and Pending Labs: Labs from last 24 hours 11/22/21 11/22/21 11/22/21 21:47 19:13 19:13 WBC RBC Hgb Hct POC Hct MCV MCH MCHC RDW Plt Count MPV Immature Gran % (Auto) Neut % (Auto) Lymph % (Auto) [place] % (Auto) Eos % (Auto) Baso % (Auto) Lymph # (Auto) [place] # (Auto) Eos # (Auto) Baso # (Auto) Immature Gran # Absolute Neutrophils POC VBG pH POC VBG pCO2 at Temp POC VBG pO2 POC VBG HCO3 POC VBG Total CO2 POC Venous O2 Sat POC VBG Base Excess VBG Lactic Acid Pending POC Sodium POC Potassium POC Chloride POC Total CO2 POC BUN POC Creatinine POC Glucose POC WB Ioniz Calcium Total Bilirubin Direct Bilirubin AST ALT Alkaline Phosphatase Ammonia Total Protein Albumin Globulin Procalcitonin 0.22 H Ethyl Alcohol mg/dL < 10.0 Ethyl Alcohol g/dL < 0.010 11/22/21 11/22/21 11/22/21 19:13 19:13 19:13 WBC 18.0 H RBC 4.56 L Hgb 13.4 L Hct 40.3 POC Hct MCV 88.4 MCH 29.4 MCHC 33.3 RDW 14.1 Plt Count 222 MPV 10.1 Immature Gran % (Auto) 0.5 Neut % (Auto) 89.5 H Lymph % (Auto) 4.1 L [place] % (Auto) 5.0 Eos % (Auto) 0.5 Baso % (Auto) 0.4 Lymph # (Auto) 0.74 L [place] # (Auto) 0.90 Eos # (Auto) 0.09 Baso # (Auto) 0.07 Immature Gran # 0.09 H Absolute Neutrophils 16.08 H POC VBG pH POC VBG pCO2 at Temp POC VBG pO2 POC VBG HCO3 POC VBG Total CO2 POC Venous O2 Sat POC VBG Base Excess VBG Lactic Acid POC Sodium POC Potassium POC Chloride POC Total CO2 POC BUN POC Creatinine POC Glucose POC WB Ioniz Calcium Total Bilirubin 1.2 H Direct Bilirubin 0.3 H AST 14 ALT 7 Alkaline Phosphatase 103 Ammonia 35 Total Protein 6.7 Albumin 3.7 Globulin 3.0 Procalcitonin Ethyl Alcohol mg/dL Ethyl Alcohol g/dL 11/22/21 11/22/21 18:31 18:30 WBC RBC Hgb Hct POC Hct 42.0 MCV MCH MCHC RDW Plt Count MPV Immature Gran % (Auto) Neut % (Auto) Lymph % (Auto) [place] % (Auto) Eos % (Auto) Baso % (Auto) Lymph # (Auto) [place] # (Auto) Eos # (Auto) Baso # (Auto) Immature Gran # Absolute Neutrophils POC VBG pH 7.42 POC VBG pCO2 at Temp 30.0 L POC VBG pO2 46 H POC VBG HCO3 19.3 L POC VBG Total CO2 20.0 L POC Venous O2 Sat 83.0 H POC VBG Base Excess -5.0 L VBG Lactic Acid 2.3 H POC Sodium 135 POC Potassium 4.5 POC Chloride 105 POC Total CO2 21.0 L POC BUN 29 H POC Creatinine 1.2 POC Glucose 172 H POC WB Ioniz Calcium 1.18 Total Bilirubin Direct Bilirubin AST ALT Alkaline Phosphatase Ammonia Total Protein Albumin Globulin Procalcitonin Ethyl Alcohol mg/dL Ethyl Alcohol g/dL A/P Narrative A/P Narrative: A: *Sepsis: *Encephalopathy: 2/2 above, improving with IVF *Developing cellulitis left foot: *Volume depletion: *Generalized weakness/deconditioning: *Chronic Afib: Patient is not on anticoagulation, states has not had a conversation about AC before. He is on what sounds like baby aspirin. He is familiar with warfarin as his is on it for VTE's. He is amenable to starting it, given his stroke risk. -CHADSVASC=4 *DM: A1c *HTN/HLD: on ccb/bb/arb, hctz/aldactone *AMANDA *obesity: bmi 37 *CKD : *Anemia, chronic: *Pyrosis: P: -IV abx, pending BC, mrsa screen -IVF -check UA -cont BB but hold other BP meds and start as able, hold diuretics for now -start Eliquis in morning, echo -elevate leg - -home cpap -pt/ot -ppx: Eliquis/h2 Time Spent With Patient Time: Total time spent is greater than 50% in coordination of care (as documented) at patient's floor/unit and/or counseling patient: Total time spent with greater than 50% in coordination of care (as documented) at patient's floor/unit and/or counseling patient:: Greater than 70 minutes QUALITY Stroke Symptom Onset Unknown: No
[2021-11-22] MEDS ORDERED: DEXTROSE 50% 50 ML VIAL IV PRN (23:41)
[2021-11-22] MEDS ORDERED: POLYETHYLENE GLYCOL 3350 17 GM PACKET PO PRN (23:41)
[2021-11-22] MEDS ORDERED: DEXTROSE 31 GM ORAL.SUSP PO PRN (23:41)
[2021-11-22] MEDS ORDERED: METOPROLOL TARTRATE 5 MG/5 ML VIAL IV PRN (23:41)
[2021-11-22] MEDS ORDERED: ACETAMINOPHEN 325 MG TABLET PO PRN (23:41)
[2021-11-22] MEDS ORDERED: CALCIUM CARBONATE 500 MG TAB.CHEW CHEWED PRN (23:41)
[2021-11-22] MEDS ORDERED: LABETALOL 5 MG/ML ML IV PRN (23:41)
[2021-11-22] MEDS ORDERED: POTASSIUM CHLORIDE 40 MEQ in DEXTROSE 5% IN WATER 500 ML IV PRN (23:41)
[2021-11-22] MEDS ORDERED: IPRATROPIUM/ALBUTEROL 3 ML AMPUL.NEB NEB PRN (23:41)
[2021-11-22] MEDS ORDERED: SENNOSIDES 1 TABLET PO PRN (23:41)
[2021-11-22] MEDS ORDERED: POTASSIUM CHLORIDE 20 MEQ TABLET PO PRN ×2 (23:41)
[2021-11-22] MEDS ORDERED: MAGNESIUM SULFATE 2 GM/50 ML BAG IV PRN (23:41)
[2021-11-22] MEDS ORDERED: ONDANSETRON 4 MG/2 ML VIAL IV PRN (23:41)
[2021-11-22] MEDS ORDERED: HEPARIN 5,000 UNIT/ML VIAL SQ SCH (23:41)
[2021-11-22] MEDS ORDERED: 0.9 % SODIUM CHLORIDE 1,000 ML IV SCH (23:41)
[2021-11-22] MEDS: INSULIN GLARGINE, HUMAN 1 UNIT/0.01 ML SQ SCH (23:58)
[2021-11-23] MEDS ORDERED: HEPARIN 5,000 UNIT/ML VIAL ONE (00:05)
[2021-11-23] MEDS ORDERED: INSULIN GLARGINE, HUMAN 1 UNIT/0.01 ML SQ ONE (00:06)
[2021-11-23] MEDS ORDERED: ACETAMINOPHEN 325 MG TABLET PO ONE (00:07)
[2021-11-23] MEDS: FAMOTIDINE 20 MG TABLET PO SCH ×3 (00:12→20:00)
[2021-11-23 00:31] LABS: Hemoglobin A1C 7.2 % Hgb (4.0-6.0)
[2021-11-23] MEDS: PIPERACILLIN SODIUM/TAZOBACTAM 3.375 GM in DEXTROSE 5% IN WATER 50 ML IV SCH ×4 (01:16→17:29)
[2021-11-23] MEDS: 0.9 % SODIUM CHLORIDE 10 ML SYRINGE IV SCH ×2 (05:57→12:52)
[2021-11-23 06:12] LABS: Hematocrit 34.8 % (40.1-51.0); Hemoglobin 11.6 g/dL (13.7-17.5); Mean Cell Volume 87.7 fL (80.0-100.0); Mean Corpuscular HGB Conc 33.3 g/dL (31.0-36.0); Mean Platelet Volume 10.4 fL (7.4-10.4); Platelet Count 191 K/mcL (140-440); RBC 3.97 M/mcL (4.63-6.08); Red Cell Distribution Width 13.9 % (11.5-14.5); WBC 13.6 K/mcL (4.5-11.0)
[2021-11-23 06:37] LABS: ALT/SGPT 6 U/L (<40); AST/SGOT 11 U/L (<40); Albumin 3.1 gm/dL (3.2-5.2); Albumin/Globulin Ratio 1.1 (1.0-2.3); Alkaline Phosphatase 83 U/L (39-117); Bilirubin,Direct 0.3 mg/dL (<0.3); Bilirubin,Total 1.8 mg/dL (0.1-1.0); Blood Urea Nitrogen 27 mg/dL (8-23); Calcium 8.6 mg/dL (8.6-10.4); Carbon Dioxide 21 mmol/L (22-30); Chloride 104 mmol/L (96-108); Globulin 2.8 gm/dL (2.2-3.7); Glomerular Filtration Rate 56; Glucose 114 mg/dL (70-105); Lactate Dehydrogenase 124 U/L (135-225); Phosphorous 3.2 mg/dL (2.5-4.5); Triglycerides 110 mg/dL (<150); Uric Acid 5.6 mg/dL (2.5-8.0)
[2021-11-23 06:42] LABS: Band Neutrophils % 4 % (0-10); Lymphocytes % 9 % (15-49); Monocytes % (Manual) 8 % (1-12); Platelet Estimate NORMAL (Normal); RBC Morphology NORMAL (Normal); Reactive Lymphocytes 3 % (0-2); Segmented Neutrophils % 76 % (38-78)
--- NOTE | 2021-11-23 06:51 | XRay Report ---
INDICATION: cellulitis, r/o osteo TECHNIQUE: AP, oblique, lateral left foot COMPARISON: None. FINDINGS: There is marked left midfoot soft tissue swelling. There are focal lucencies in the dorsal soft tissues. Mild soft tissue gas is possible. No left foot fracture. No stress reaction. There is no evidence for osteomyelitis. No cortical destruction or periosteal new bone formation. IMPRESSION: 1. Marked soft tissue swelling and possible mild soft tissue gas 2. No evidence for osteomyelitis Interpreted and Authenticated by: Vignesh Barrera 11/23/21
--- NOTE | 2021-11-23 07:05 | XRay Report ---
INDICATION: sepsis TECHNIQUE: AP portable semiupright chest x-ray COMPARISON: Previous chest x-rays dated 10/29/2021, 09/07/2021 FINDINGS: Lungs:Lungs are negative. No focal pulmonary parenchymal infiltrate or mass Heart, vascular:No significant cardiomegaly. Pulmonary vascularity is normal. No pulmonary edema or pulmonary congestion Mediastinum, hazel:No mediastinal widening. No hilar mass Pleura:No pleural fluid. No pleural-based mass or calcification Skeletal:Negative. IMPRESSION: 1. No acute abnormality 2. No interval change Interpreted and Authenticated by: Vignesh Barrera 11/23/21
--- NOTE | 2021-11-23 07:27 | Cat Scan Report ---
INDICATION: Altered mental status COMPARISON: None. TECHNIQUE: Axial noncontrast-enhanced images through the brain. Sagittally and coronally reformatted images. 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 No acute intracranial hemorrhage. No acute attenuation abnormality or localized mass effect. No midline shift. Brain volume is within normal limits for age. Brainstem and cerebellum:No intra-axial abnormality Extra-axial:No acute hemorrhage. No subdural or epidural hematoma. No subarachnoid hemorrhage. Basilar cisterns are normal Calvarial:No calvarial fracture. No lytic lesion Temporal bones are negative. No destructive lesions Soft tissue, orbits, sinuses:Orbits and visualized facial soft tissues and paranasal sinuses are negative IMPRESSION: 1. Small focal areas of encephalomalacia in the occipital lobes bilaterally 2. No acute abnormality The exam was performed using radiation dose optimization techniques including, but not limited to, automated exposure control, adjustment of the mA and/or kV according to patient size and use of iterative reconstruction technique. Interpreted and Authenticated by: Vignesh Barrera 11/23/21
[2021-11-23] MEDS: INSULIN LISPRO 1 UNIT/0.01 ML UNIT SQ SCH ×4 (07:30→20:00)
--- NOTE | 2021-11-23 07:33 | Cat Scan Report ---
INDICATION: ams COMPARISON: None. TECHNIQUE: Axial images were obtained through the upper chest, neck, and head during arterial phase. MIP and CPR reformatted images. 90ml Isovue 370 injected intravenously. FINDINGS: Examination was initially interpreted by [facility] AORTIC ARCH:Calcified atherosclerotic plaque. Origins of the left subclavian artery, left vertebral artery, left common carotid artery, innominate artery, right common carotid artery, right subclavian artery, right vertebral artery are negative. No origin stenosis. CAROTID ARTERIES:Right: Right common carotid artery is negative. No stenosis or occlusion. Calcified plaque at the origin of the right internal carotid artery. No significant stenosis or evidence for ulceration. Right internal carotid artery is otherwise negative. No stenosis or occlusion. No fibromuscular dysplasia or dissection. Right internal carotid artery is markedly tortuous Left: Left common carotid artery is negative. No stenosis or occlusion. There is calcified and noncalcified plaque in the distal left common carotid artery. There is no hemodynamically significant stenosis. Calcified plaque at the origin of left internal carotid artery. No significant stenosis. No evidence for ulceration. Left internal carotid artery is otherwise negative. There is no stenosis or occlusion. No dissection or evidence for fibromuscular dysplasia. Left internal carotid artery is markedly tortuous VERTEBRAL ARTERIES:Vertebral arteries are patent without stenosis or occlusion [place]:[Cavernous and supraclinoid internal carotid arteries are negative. No significant stenosis or occlusion. M1 segments of the middle cerebral arteries and A1 segments of the anterior cerebral arteries are negative. Intracranial vertebral arteries and basilar artery are negative. Posterior cerebral arteries and superior cerebellar arteries are negative] INTRACRANIAL CIRCULATION:No intracranial branch occlusion. No arteriovenous malformation or aneurysm No dural sinus occlusion UPPER CHEST:No pulmonary parenchymal mass or focal infiltrate. Superior mediastinum is negative. Main pulmonary artery measures 3.5 cm. This is enlarged and may indicate pulmonary arterial hypertension. NECK:No solid or cystic soft tissue mass. No pathologic lymphadenopathy. BRAIN:No acute intracranial hemorrhage. No focal attenuation abnormalities or pathologic contrast enhancement. IMPRESSION: 1. Mild calcified plaque in the proximal internal carotid artery bilaterally. No hemodynamically significant stenosis. Calcified and noncalcified plaque in the distal left common carotid artery. No significant stenosis. 2. No intracranial abnormality. No branch occlusion 3. Dilated main pulmonary artery. The exam was performed using radiation dose optimization techniques including, but not limited to, automated exposure control, adjustment of the mA and/or kV according to patient size and use of iterative reconstruction technique. Interpreted and Authenticated by: Vignesh Barrera 11/23/21
--- NOTE | 2021-11-23 07:51 | Internal Med Progress Note ---
SUBJECTIVE Subjective Patient information: Note initiated : 11/23/21 at 7:45 am Service Date, if different from initiated Date: [] Patient: Gisele Steiner a 81 y/o M admitted on 11/22/21 for altered mental status. Chief Complaint: [] Interval history: History of present illness: Mr. Steiner is a 81 year old M Presents today with family members for weakness confusion nausea vomiting. Most of the history is obtained from the daughter as patient still has some confusion and is a poor historian. Sounds like he was feeling well this morning when he woke up. Around 3:00 he became progressively weak. He says he had the "trembles". He had progressive confusion and had nausea and vomiting and then felt he had an upset stomach. Does frequently have pyrosis. Also complained of fevers and chills. No diarrhea. No chest pain coughing or respiratory complaints. Denies any dysuria but feels his urine is strong smelling. In the ED he had a stroke work-up including CTA head and neck which were unremarkable. Laboratory was significant for a fever of 100.7. Had some low systolic blood pressures in the low 90s. Procalcitonin mildly elevated lactate mildly elevated 2.3. BUN 29 creatinine 1.2. And a leukocytosis of 18,000. Evaluating for source of infection in the ED, he was found to have some erythema over the left foot as well as swelling. Discussion with the daughter she says that is unusual for him. The redness and swelling over the dorsum of the foot. He also has more swelling in that leg compared to the right. Patient is also found to have a atrial fibrillation. Per the family they think has had it for a years but I do not find any record in PCP notes. Cannot find any echocardiograms but I do find an EKG from 2019 that shows atrial fibrillation. EKG also in A. fib in October during ED visit. 11/23 Patient said he was able to get some sleep last night. No new complaints. Patient is afebrile since admission to the floor. Leukocytosis improving. Review of Systems: denies headache/fever/chills/nausea/vomiting/chest or abdominal pain/cough/dyspnea/diarrhea. Otherwise see above. Constitutional Vitals: Vital Signs Temp Pulse Resp BP Pulse Ox O2 Del Method 99.0 F 66 23 H 91/58 95 11/23/21 00:02 11/23/21 05:24 11/23/21 05:24 11/23/21 05:24 11/23/21 05:24 11/22/21 23:26 Period Temp Pulse Resp BP Sys/Nieves Pulse Ox O2 Del Method O2 Flow Rate Last 24 Hr 98.7 F-100.7 F 64-90 15-28 89-138/56-125 92-96 Room Air-Room Air Intake and Output 11/22/21 11/23/21 11/23/21 21:59 05:59 13:59 Intake Total 2630 50 50 Output Total 301 Balance 2630 -251 50 Weight 123.831 kg 124.426 kg Intake & Output: Intake & Output 11/22/21 11/23/21 11/23/21 21:59 05:59 13:59 Intake Total 2630 50 50 Output Total 301 Balance 2630 -251 50 Weight 123.831 kg 124.426 kg Intake: IV 2630 50 50 Sodium Chloride 0.9% 2,330 ml @ 2330 4660 mls/hr IV .Q30M ONE Rx#: [id number] Zosyn 3.375 gm In Dextrose 5% 50 50 50 in Water 50 ml @ 100 mls/hr IV Q6H COUNT INCLUDES THE [facility] Rx#:[id number] Vancomycin 1,000 mg In Sodium 250 Chloride 0.9% 250 ml @ 250 mls/ hr IV ONCE ONE Rx#:[id number] Output: Void Amount 300 # of times incontinent of urine 1 Other: Urine Appearance Clear Urine Color Dark Yellow Stool Size Smear Stool Color Brown Stool Consistency Soft # Voids 1 Exam: General: Alert, Awake, No acute Distress, obese Eyes/N/T: EOMI, Head/Neck: neck supple, CV: RRR, No murmurs, Pulm: Clear b/l, no wheezing/rhonchi/rales Abd: soft, nontender, +BS x4 Ext: no clubbing/cyanosis. b/l LE edema 2+ L>R, mild erythema and increased edema dorsum of left foot but nontender Neuro: Alert, no focal deficits, moves all extremities, Skin: warm/dry OBJ DATA Labs CBC & Chem 7: 11/23/21 05:14 11/23/21 05:14 Labs: Abnormal Lab Results 0811/23/21 11/22/21 05:14 05:14 23:53 WBC 13.6 H RBC 3.97 L Hgb 11.6 L Hct 34.8 L Neut % (Auto) Lymph % (Auto) Lymph # (Auto) Lymphocytes % 9 L Immature Gran # Absolute Neutrophils Reactive Lymphocytes 3 H POC VBG pCO2 at Temp POC VBG pO2 POC VBG HCO3 POC VBG Total CO2 POC Venous O2 Sat POC VBG Base Excess VBG Lactic Acid Carbon Dioxide 21 L POC Total CO2 POC BUN BUN 27 H Glucose 114 H POC Glucose Hemoglobin A1c 7.2 H Total Bilirubin 1.8 H Direct Bilirubin 0.3 H Lactate Dehydrogenase 124 L Albumin 3.1 L Procalcitonin 11/22/21 11/22/21 11/22/21 19:13 19:13 19:13 WBC 18.0 H RBC 4.56 L Hgb 13.4 L Hct Neut % (Auto) 89.5 H Lymph % (Auto) 4.1 L Lymph # (Auto) 0.74 L Lymphocytes % Immature Gran # 0.09 H Absolute Neutrophils 16.08 H Reactive Lymphocytes POC VBG pCO2 at Temp POC VBG pO2 POC VBG HCO3 POC VBG Total CO2 POC Venous O2 Sat POC VBG Base Excess VBG Lactic Acid Carbon Dioxide POC Total CO2 POC BUN BUN Glucose POC Glucose Hemoglobin A1c Total Bilirubin 1.2 H Direct Bilirubin 0.3 H Lactate Dehydrogenase Albumin Procalcitonin 0.22 H 11/22/21 11/22/21 18:31 18:30 WBC RBC Hgb Hct Neut % (Auto) Lymph % (Auto) Lymph # (Auto) Lymphocytes % Immature Gran # Absolute Neutrophils Reactive Lymphocytes POC VBG pCO2 at Temp 30.0 L POC VBG pO2 46 H POC VBG HCO3 19.3 L POC VBG Total CO2 20.0 L POC Venous O2 Sat 83.0 H POC VBG Base Excess -5.0 L VBG Lactic Acid 2.3 H Carbon Dioxide POC Total CO2 21.0 L POC BUN 29 H BUN Glucose POC Glucose 172 H Hemoglobin A1c Total Bilirubin Direct Bilirubin Lactate Dehydrogenase Albumin Procalcitonin Meds: Medications Acetaminophen (Acetaminophen 325 Mg Tablet) 650 mg PO Q6HP PRN; Protocol PRN Reason: Per Pain Protocol/Fever > 101 Last Admin: 11/22/21 23:57 Dose: 650 mg Albuterol/Ipratropium (Ipratropium/Albuterol 3 Ml Ampul.Neb) 3 ml NEB Q4HP PRN PRN Reason: Shortness Of Breath Allopurinol (Allopurinol 300 Mg Tablet) 300 mg PO DAILY COUNT INCLUDES THE [facility] Calcium Carbonate/Glycine (Calcium Carbonate 500 Mg Tab.Chew) 500 mg CHEWED Q4HP PRN PRN Reason: Dyspepsia Dextrose (Dextrose 50% 50 Ml Vial) 0 ml IV UD PRN PRN Reason: Per Sliding Scale Diagnostic Test (Pha) (Accu-Chek 1 Each Strip) 1 each FS ACHS COUNT INCLUDES THE [facility] Last Admin: 11/23/21 07:20 Dose: 1 each Famotidine (Famotidine 20 Mg Tablet) 20 mg PO BID COUNT INCLUDES THE [facility] Last Admin: 11/23/21 00:12 Dose: Not Given Glucose (Dextrose 31 Gm Oral.Susp) 15 gm PO PRN PRN PRN Reason: Hypoglycemia Heparin Sodium (Porcine) (Heparin 5,000 Unit/Ml Vial) 5,000 unit SQ Q12 COUNT INCLUDES THE [facility] Last Admin: 11/22/21 23:58 Dose: 5,000 unit Potassium Chloride 40 meq/ (Dextrose) 520 mls @ 130 mls/hr IV UD PRN PRN Reason: Potassium < 3 Magnesium Sulfate (Magnesium Sulfate) 2 gm in 50 mls @ 50 mls/hr IV UD PRN PRN Reason: Magnesium </= 1.6 Sodium Chloride (Sodium Chloride 0.9%) 1,000 mls @ 84 mls/hr IV .[id number] COUNT INCLUDES THE [facility] Stop: 11/23/21 11:35 Last Admin: 11/23/21 00:12 Dose: 84 mls/hr Piperacillin Sod/Tazobactam (Sod 3.375 gm/ Dextrose) 50 mls @ 100 mls/hr IV Q6H COUNT INCLUDES THE [facility]; Protocol Last Infusion: 11/23/21 06:26 Dose: Infused Insulin Glargine (Insulin Glargine, Human 1 Unit/0.01 Ml) 15 unit SQ HS COUNT INCLUDES THE [facility] Last Admin: 11/22/21 23:58 Dose: 15 unit Insulin Human Lispro (Insulin Lispro 1 Unit/0.01 Ml Unit) 0 unit SQ ACHS COUNT INCLUDES THE [facility]; Protocol Last Admin: 11/23/21 07:30 Dose: Not Given Labetalol HCl (Labetalol 5 Mg/Ml Ml) 0 mg IV Q2HP PRN PRN Reason: Hypertension Metoprolol Succinate (Metoprolol Succinate 25 Mg Tab.Xl.24h) 25 mg PO DAILY LAMBERT Metoprolol Succinate (Metoprolol Succinate 50 Mg Tab.Xl.24h) 50 mg PO HS COUNT INCLUDES THE [facility] Metoprolol Tartrate (Metoprolol Tartrate 5 Mg/5 Ml Vial) 5 mg IV Q2HP PRN PRN Reason: Tachyarrhythmias HR>110 Ondansetron HCl (Ondansetron 4 Mg/2 Ml Vial) 4 mg IV Q4HP PRN PRN Reason: Nausea And Vomiting Polyethylene Glycol (Polyethylene Glycol 3350 17 Gm Packet) 17 gm PO DAILYP PRN PRN Reason: Constipation Potassium Chloride (Potassium Chloride 20 Meq Tablet) 40 meq PO UD PRN PRN Reason: Potssium is 3-3.5 Potassium Chloride (Potassium Chloride 20 Meq Tablet) 40 meq PO UD PRN PRN Reason: Potassium < 3 Senna (Sennosides 1 Tablet) 2 tab PO DAILYP PRN PRN Reason: Constipation Simvastatin (Simvastatin 20 Mg Tablet) 20 mg PO HS COUNT INCLUDES THE [facility] Sodium Chloride (0.9 % Sodium Chloride 10 Ml Syringe) 10 ml IV Q8 COUNT INCLUDES THE [facility] Last Admin: 11/23/21 05:57 Dose: 10 ml A/P Narrative A/P Narrative: A: *Sepsis: -leukocytosis improving, lactic acidosis resolved *Encephalopathy: 2/2 above, improved with IVF *Developing cellulitis left foot: *Volume depletion: *Generalized weakness/deconditioning: *Chronic Afib: ?relatively new diagnosis. He is amenable to starting AC, given his stroke risk. -CHADSVASC=4 *DM: A1c 7.2 *HTN/HLD: on ccb/bb/arb, hctz/aldactone *AMANDA *obesity: bmi 37 *CKD III: *Anemia, chronic: *Pyrosis: P: -IV abx, pending BC, mrsa screen -s/p IVF -cont BB but hold other BP meds and start as able, hold diuretics for now -start Eliquis, echo -elevate leg - -home cpap -pt/ot -ppx: Eliquis/h2 Time Spent With Patient Time: Total time spent is greater than 50% in coordination of care (as documented) at patient's floor/unit and/or counseling patient: Total time spent with greater than 50% in coordination of care (as documented) at patient's floor/unit and/or counseling patient:: 25 - 35 minutes QUALITY Stroke Symptom Onset Unknown: No
[2021-11-23] MEDS: ALLOPURINOL 300 MG TABLET PO SCH (08:31)
[2021-11-23] MEDS: METOPROLOL SUCCINATE 25 MG TAB.XL.24H PO SCH (08:31)
[2021-11-23] MEDS: APIXABAN 5 MG TABLET PO SCH ×2 (08:31→20:00)
[2021-11-23 12:18] LABS: Appearance,Urine Clear (Clear); Bilirubin,Urine Negative (Negative); Color,Urine Yellow; Culture Indicated,Urine No; Glucose,Urine (UA) Negative (Negative); Ketones,Urine Negative (Negative); Leukocyte Esterase,Urine Negative /uL (Negative); Nitrate,Urine Negative (Negative); PH,Urine 5.5 (5.0-9.0); Specific Gravity,Urine 1.025 (1.000-1.035); Urine Blood Trace-intact ery/mcL (Negative); Urine RBC 3 /hpf (0-3); Urine Squamous Epithelial Cell 1 /hpf (0-4); Urine WBC < 1 /hpf (0-4); Urobilinogen,Urine 2.0 E.U./dL mg/dL
[2021-11-23] MEDS: INSULIN GLARGINE, HUMAN 1 UNIT/0.01 ML SQ SCH (20:03)
[2021-11-23] MEDS ORDERED: SIMVASTATIN 20 MG TABLET PO SCH (21:00)
[2021-11-23] MEDS ORDERED: METOPROLOL SUCCINATE 50 MG TAB.XL.24H PO SCH (21:00)
[2021-11-24] MEDS: 0.9 % SODIUM CHLORIDE 10 ML SYRINGE IV SCH ×2 (00:04→05:43)
[2021-11-24] MEDS: PIPERACILLIN SODIUM/TAZOBACTAM 3.375 GM in DEXTROSE 5% IN WATER 50 ML IV SCH ×2 (00:04→05:41)
[2021-11-24 06:03] LABS: Basophils # (Auto) 0.05 K/mcL (0.00-0.30); Basophils % (Auto) 0.6 % (0.0-2.0); Eosinophils # (Auto) 0.54 K/mcL (0.00-0.70); Eosinophils % (Auto) 6.3 % (0.0-7.0); Hematocrit 36.4 % (40.1-51.0); Hemoglobin 12.1 g/dL (13.7-17.5); Lymphocytes # (Auto) 2.22 K/mcL (1.50-4.80); Lymphocytes % (Auto) 25.9 % (15.5-49.0); Mean Cell Volume 88.1 fL (80.0-100.0); Mean Corpuscular HGB Conc 33.2 g/dL (31.0-36.0); Mean Platelet Volume 10.3 fL (7.4-10.4); Monocytes # (Auto) 0.74 K/mcL (0.10-0.90); Monocytes % (Auto) 8.6 % (1.0-12.0); Neutrophils % (Auto) 58.1 % (38.0-78.0); Platelet Count 182 K/mcL (140-440); RBC 4.13 M/mcL (4.63-6.08); Red Cell Distribution Width 14.2 % (11.5-14.5); WBC 8.6 K/mcL (4.5-11.0)
[2021-11-24 06:27] LABS: Blood Urea Nitrogen 23 mg/dL (8-23); Calcium 9.2 mg/dL (8.6-10.4); Carbon Dioxide 23 mmol/L (22-30); Chloride 104 mmol/L (96-108); Glomerular Filtration Rate 62; Glucose 91 mg/dL (70-105)
[2021-11-24] MEDS: ALLOPURINOL 300 MG TABLET PO SCH (08:29)
[2021-11-24] MEDS: METOPROLOL SUCCINATE 25 MG TAB.XL.24H PO SCH (08:29)
[2021-11-24] MEDS: FAMOTIDINE 20 MG TABLET PO SCH (08:29)
[2021-11-24] MEDS: APIXABAN 5 MG TABLET PO SCH (08:29)
[2021-11-24] MEDS: INSULIN LISPRO 1 UNIT/0.01 ML UNIT SQ SCH ×2 (08:31→11:49)
--- NOTE | 2021-11-24 11:03 | Discharge Summary ---
Discharge Provider Provider IMPORTANT FOLLOW-UP INFORMATION FOR PCP: 1.F/u discussion re: antiocoagulation Patient information: Note initiated : 11/24/21 at 11:01 am Service Date, if different from initiated Date: [] Patient: Gisele Steiner 81 y/o M admitted on 11/22/21 for altered mental status. Chief Complaint: [] Date of admission: 11/22/21 23:26 Discharge date: 11/24/21 Primary care physician: Abran Owens Admitting clinician: Gaurang Munroe Consults: 11/22/21 Consult to Physician [CONS] Stat Comment: Consulting Provider: Gaurang Munroe Reason For Exam: Physician to Consult Attending physician on discharge: Jasmit Joe COURSE Hospital Course Hospital course: History of present illness: Mr. Steiner is a 81 year old M Presents today with family members for weakness confusion nausea vomiting. Most of the history is obtained from the daughter as patient still has some confusion and is a poor historian. Sounds like he was feeling well this morning when he woke up. Around 3:00 he became progressively weak. He says he had the "trembles". He had progressive confusion and had nausea and vomiting and then felt he had an upset stomach. Does frequently have pyrosis. Also complained of fevers and chills. No diarrhea. No chest pain coughing or respiratory complaints. Denies any dysuria but feels his urine is strong smelling. In the ED he had a stroke work-up including CTA head and neck which were unremarkable. Laboratory was significant for a fever of 100.7. Had some low systolic blood pressures in the low 90s. Procalcitonin mildly elevated lactate mildly elevated 2.3. BUN 29 creatinine 1.2. And a leukocytosis of 18,000. Evaluating for source of infection in the ED, he was found to have some erythema over the left foot as well as swelling. Discussion with the daughter she says that is unusual for him. The redness and swelling over the dorsum of the foot. He also has more swelling in that leg compared to the right. Patient is also found to have a atrial fibrillation. Per the family they think has had it for a years but I do not find any record in PCP notes. Cannot find any echocardiograms but I do find an EKG from 2019 that shows atrial fibrillation. EKG also in A. fib in October during ED visit. 11/23 Patient said he was able to get some sleep last night. No new complaints. Patient is afebrile since admission to the floor. Leukocytosis improving. 11/24: I briefly took over the care of this patient this morning at which point he has defervesced and his white blood cell count is normalized to 8.6. Blood cultures revealed no growth to date. He will be transition to doxycycline 100 mg twice daily for total of 14 days. On examination, there is no longer any erythema or swelling noted. His leg looks good. The patient is in good spirits and this alert, oriented x3. He is eager to return home. Of note, he was started on Eliquis for anticoagulation. He may continue to have follow-up discussion with his primary care physician. The patient's echo report has resulted and reveals normal LV systolic function with an EF of 55 to 60%. He has mild pulmonary hypertension, left atrium is moderately dilated and right atrium is mildly dilated. No significant valvular heart disease. There is no evidence of pericardial effusion Discharge diagnosis: Toxic metabolic encephalopathy, sepsis, left lower extremity cellulitis Time Spent with Patient Time attestation: Total time spent providing and/or coordinating discharge services: Time spent: Greater than 30 minutes EXAM Constitutional Vitals: Temp Pulse Resp BP Pulse Ox O2 Del Method 97.4 F 58 L 20 126/81 94 11/24/21 08:00 11/24/21 08:00 11/24/21 08:00 11/24/21 08:00 11/24/21 08:00 11/24/21 03:28 General appearance: average body habitus Head Head exam: Present atraumatic, normal inspection and normocephalic Eye Eye exam: Present EOMI, normal appearance and PERRL; Absent conjunctival injection ENT ENT exam: Present normal exam; Absent mucous membranes dry Neck Neck exam: Present full ROM; Absent lymphadenopathy Respiratory Respiratory exam: Present normal respiratory exam and CTAB; Absent decreased breath sounds, respiratory distress or wheezes Cardiovascular Cardiovascular exam: Present normal rate and rhythm and RRR; Absent JVD GI/Abdominal GI/Abdominal exam: Present normal bowel sounds and soft; Absent diminished bowel sounds, distended, guarding, mass, rebound or tenderness Neurological Exam Neurological exam: Present alert, CN II-XII intact and oriented X3 Psychiatric Psychiatric exam: Present normal affect and normal mood Skin Skin exam: Present intact and warm; Absent erythema, pallor, petechiae or rash Discharge Data Data Completed and Pending Labs on day of discharge: Labs from last 24 hours 11/24/21 11/24/21 11/23/21 05:18 05:18 11:35 WBC 8.6 RBC 4.13 L Hgb 12.1 L Hct 36.4 L MCV 88.1 MCH 29.3 MCHC 33.2 RDW 14.2 Plt Count 182 MPV 10.3 Immature Gran % (Auto) 0.5 Neut % (Auto) 58.1 Lymph % (Auto) 25.9 Placer % (Auto) 8.6 Eos % (Auto) 6.3 Baso % (Auto) 0.6 Lymph # (Auto) 2.22 Placer # (Auto) 0.74 Eos # (Auto) 0.54 Baso # (Auto) 0.05 Immature Gran # 0.04 Absolute Neutrophils 4.97 Sodium 136 Potassium 4.1 Chloride 104 Carbon Dioxide 23 Anion Gap 9.0 BUN 23 Creatinine 1.1 GFR Calculation 62 Glucose 91 Calcium 9.2 Urine Color Yellow Urine Appearance Clear Urine pH 5.5 Ur Specific [place] 1.025 Urine Protein 100 mg/dl A Urine Glucose (UA) Negative Urine Ketones Negative Urine Occult Blood Trace-intact A Urine Nitrate Negative Urine Bilirubin Negative Urine Urobilinogen 2.0 e.u./dl A Ur Leukocyte Esterase Negative Urine RBC 3 Urine WBC < 1 Ur Squamous Epith Cells 1 Urine Bacteria None Ur Culture Indicated? No Preliminary micro results at discharge 11/22/21 19:18 Blood Culture - Preliminary Blood 11/22/21 19:13 Blood Culture - Preliminary Blood Discharge Plan Patient/Caregiver Discharge Instructions Activity: increase activity as tolerated Diet: Regular Diet Instructions: Cellulitis (DC) Prescriptions: New Eliquis 5 mg Tablet 5 mg PO BID 30 Days Qty: 60 0RF doxycycline hyclate 100 mg tablet 100 mg PO BID 12 Days Qty: 24 0RF Continued metformin 500 MG tablet 1,000 mg PO BIDCC insulin glargine 1 UNIT/0.01 ML unit 15 unit SQ HS pravastatin 40 MG tablet 40 mg PO HS amlodipine 5 MG tablet 5 mg PO BID allopurinol 300 MG tablet 300 mg PO DAILY losartan-hydrochlorothiazide 100-25 mg tablet 1 tab PO QDAY spironolactone 25 mg tablet 1 tab PO QAM nateglinide 60 mg tablet 1 tab PO TIDAC metoprolol succinate 25 mg tablet extended release 24 hr 25 mg PO .COMPLEX INSTRUCTION Rx Instructions: 25 mg in am and 50 mg in the evening. Follow Up Plan Follow up with: Abrna Owens DO [Primary Care Provider] - Patient Disposition: Home, Self-Care Prognosis: Fair Rehab Potential: Good I certify that the patient requires SNF services: No Overall status at discharge: patient is progressing back to baseline Discharge Orders: Discharge Order (Routine); Ordered 11/24/21 Ordered By: Britta Diaz
== END 2021-11-24 12:05 | disposition home or self-care (01) | DRG 871 ==
LOC: ED 17:56 → ICU 23:26 → MEDSUR 11-23 17:31
PROVIDERS: ADMIT Internal Medicine; ATTEND Internal Medicine